=== PATIENT | female | born 1945 | race Caucasian/White ===

== ENCOUNTER → 2023-04-17 11:38 | Outpatient (REF) | payer OTHER, SELFPAY | LOC: HWRAD 11:38 | PROVIDERS: ATTENDING PHYSICIAN Nurse Practitioner Family; FAMILY PHYSICIAN Internal Medicine | DX: M85.80 Other specified disorders of bone density and structure, unspecified site (principal); Z12.31 Encounter for screening mammogram for malignant neoplasm of breast | CPT/HCPCS: 77063; 77067; 77080 ==

== ENCOUNTER → 2024-06-02 13:41 | Outpatient (REF) | payer OTHER, SELFPAY | LOC: HWRCS 13:41 | PROVIDERS: ATTENDING PHYSICIAN Student in an Organized Health Care Education/Training Program; FAMILY PHYSICIAN Nurse Practitioner | DX: R01.1 Cardiac murmur, unspecified (principal) | CPT/HCPCS: 93306 ==

== ENCOUNTER → 2024-07-06 10:52 | Outpatient (REF) | payer OTHER, SELFPAY | LOC: HWWDC 10:52 | PROVIDERS: ATTENDING PHYSICIAN Nurse Practitioner | DX: Z12.31 Encounter for screening mammogram for malignant neoplasm of breast (principal) | CPT/HCPCS: 77063; 77067 ==

== ENCOUNTER → 2024-08-27 08:38 | Outpatient (REF) | payer OTHER, SELFPAY | LOC: PAVMRI 08:38 | PROVIDERS: ATTENDING PHYSICIAN Student in an Organized Health Care Education/Training Program; FAMILY PHYSICIAN Nurse Practitioner | DX: R93.1 Abnormal findings on diagnostic imaging of heart and coronary circulation (principal); R01.1 Cardiac murmur, unspecified; I51.7 Cardiomegaly | CPT/HCPCS: 75561; 75565; A9585 ==